=== PATIENT | male | born 1970 | race Two or more races ===

== ENCOUNTER 2018-05-16 12:36 | Outpatient (CLI) | payer BC | END 2018-05-16 23:59 | disposition home or self-care (01) | LOC: WOU 12:36 | PROVIDERS: ATTEND Podiatrist Foot & Ankle Surgery | DX: L60.0 Ingrowing nail (principal); L03.032 Cellulitis of left toe; I10 Essential (primary) hypertension; K21.9 Gastro-esophageal reflux disease without esophagitis; Z79.899 Other long term (current) drug therapy | CPT/HCPCS: 11730; A6402; J3490 ==

== ENCOUNTER 2018-05-23 13:10 | Outpatient (CLI) | payer BC | END 2018-05-23 23:59 | disposition home or self-care (01) | LOC: WOU 13:10 | PROVIDERS: ATTEND Podiatrist Foot & Ankle Surgery | DX: Z09 Encounter for follow-up examination after completed treatment for conditions other than malignant neoplasm (principal); L60.0 Ingrowing nail | CPT/HCPCS: 99214; Z7610; G0463 ==